=== PATIENT | male | born 1940 | race Caucasian/White ===

== ENCOUNTER 2024-10-26 20:24 | Emergency (ER) | payer MEDICARE, SELFPAY ==
[2024-10-26 20:24] VITALS: BP 163/77; PULSE 88; RESP 18; TEMP 36.8; O2SAT 97
[2024-10-26 20:47] VITALS: BMI 33.7
--- NOTE | 2024-10-26 20:52 | ED.VIS.FALL ---
HPI HPI - Fall History of Present Illness Chief Complaint: Fall [facility] Medical History (Updated 10/26/24 @ 20:49 by Zuri Florez) TIA (transient ischemic attack) Gout Hypertension Allergy/AdvReac Type Severity Reaction Status Date / Time No Known Allergies Allergy Verified 10/26/24 20:27 Social History Smoking Status: Former smoker EXAM Physical Exam Const Vital Signs: 10/26/24 20:24 10/26/24 20:49 10/26/24 21:15 Temperature 98.2 F Temperature Source Oral Pulse Rate 88 Respiratory Rate 18 Respiratory Effort Normal Non-Labored Respiratory Depth Normal Respiratory Pattern Normal Blood Pressure 163/77 H 149/73 H Blood Pressure Mean 105 94 Pulse Ox 97 98 Oxygen Delivery Method Room Air Room Air 10/26/24 22:00 Temperature Temperature Source Pulse Rate Respiratory Rate Respiratory Effort Respiratory Depth Respiratory Pattern Blood Pressure 120/77 Blood Pressure Mean 88 Pulse Ox 97 Oxygen Delivery Method MDM MDM MDM Narrative Medical decision making narrative: HISTORY OF PRESENT ILLNESS: Chief complaint: Fall 84-year-old male presents with fall in bathroom. Notes pain in his left flank. Family concerned he may have injured his left kidney. He is history of a traumatic kidney injury. Then with the patient's on Coumadin. Denies urinary complaints. No frequency urgency or dysuria. REVIEW OF SYSTEMS: Pertinent positives: Left flank pain Pertinent negatives: Urinary complaint PHYSICAL EXAM: Nursing triage notes reviewed, Vital signs reviewed Constitutional: please see mdm HENT: MMM Eyes: Pupils equal round and reactive to light, Extraocular muscles intact Neck: No stridor, no JVD, full neck ROM Lungs: Clear to auscultation, No wheezing or rales. No increased work of breathing, no conversational dyspnea, no accessory muscle use, no nasal flaring. No respiratory distress noted Heart: Regular rate and rhythm, No murmurs, No rubs and No gallops, 2+ distal pulses (radial, femoral, posterior tibial) in all extremities Abdomen: Soft, there is no tenderness, rigidity, rebound or guarding, no obvious peritoneal signs, no palpable pulsatile abdominal masses, no auscultated abdominal bruit : No CVAT Extremities: No edema Neuro: No new focal neurological deficits, cranial nerves II through XII intact, 5/5 strength in all present extremities. Intact sensation to light touch in all present extremities, 2+ reflexes bilateral patella tendons. Skin: No rash or lesions noted MEDICAL DECISION MAKING: Chief Complaint: please see HPI External records reviewed: Reviewed prior imaging studies Factors affecting care: Chronic anticoagulation Social determinants of health: none History obtained from others: family Consults: none [facility] Narrative: The patient was initially hemodynamically stable, afebrile and nontoxic-appearing. Exam without obvious outward trauma I considered the following differential diagnosis: Left leg contusion, renal laceration I obtained labs and images to further determine if the patient was suffering from a life-threatening etiology. Offered pain medicine the patient stated he felt fine he did not need pain medicine at this time ALL IMAGES (IF OBTAINED) HAVE BEEN PERSONALLY REVIEWED AND INTERPRETED BY MYSELF. CT scan abdomen pelvis shows no evidence of RP bleed or renal laceration. Noted prior injury. Also noted a kidney stone however patient clinically does not present like a kidney stone. It is small will pass on its own if it is truly stone. Radiologist also mention perinephric stranding and concern for cystitis however patient has no white blood cell count elevation, he has no fever. No flank pain or signs of infection prior to falling. This is purely traumatic mechanism. Suspect these imaging findings are artifacts. Low suspicion for associated UTI as patient had no urinary complaints. Is a traumatic injury INR supratherapeutic BMP without significant electrolyte abnormalities, noted CKD LFTs show no evidence of hepatobiliary pathology. Patient is appropriate discharge home as he did not have any evidence of Significant traumatic injury of the abdomen pelvis The patient and/or family, caregivers express understanding. The patient and/or family, caregivers agrees with the plan. Shared decision making: I will have a discussion with the patient and or visitors regarding risk/benefits of further testing or admission. They will be made aware of of the risk/benefits inherent in this decision they will be given the opportunity to voice understanding. Total critical care time today provided was at least 0 minutes. This excludes separately billable procedures. Critical care time (if documented) is secondary to the patient having high probability of clinically significant/life threatening deterioration in the patient's condition which required my urgent intervention. Impression: 1. Left flank pain 2. Fall 3. History of chronic anticoagulation 4. Nephrolithiasis Dispo: Discharge home This note was generated with [employer] dictation software. It may contain incorrect words, spelling, and punctuation that were not noted in review of the chart prior to signing. Lab Data Labs: Laboratory Results - last 24 hr 07/02/25 21:37 WBC 8.9 RBC 4.86 Hgb 15.4 Hct 46.0 MCV 94.7 H MCH 31.7 MCHC 33.5 RDW Std Deviation 51.4 H RDW Coeff of Valdo 14.7 H Plt Count 114 L MPV 9.8 Immature Gran % (Auto) 0.500 Neut % (Auto) 74.2 H Lymph % (Auto) 14.4 L [place] % (Auto) 7.7 Eos % (Auto) 2.4 Baso % (Auto) 0.8 Absolute Neuts (auto) 6.6 Absolute Lymphs (auto) 1.28 Nucleated RBC % 0 PT 36.0 H INR 3.5 Sodium 139 Potassium 4.3 Chloride 107 Carbon Dioxide 24.0 Anion Gap 9 BUN 21 H Creatinine 1.57 H Estim Creat Clear Calc 44.33 L Est GFR (MDRD) Non-Af 44 L BUN/Creatinine Ratio 13.6 Glucose 101 H Calcium 9.4 Total Bilirubin 0.66 Direct Bilirubin 0.33 H AST 32 ALT 17 Alkaline Phosphatase 84 Total Protein 6.5 Albumin 3.6 Globulin 3.0 Radiography Diagnostic Testing: Clinical Impression(s) from Imaging Studies Abdomen/Pelvis CT 10/26/24 21:50 IMPRESSION: 4 x 8 mm distal left ureteral stone without hydronephrosis. Possible recent left renal focal infarct. Cystitis and/or bladder wall hypertrophy. Advise correlation. Reading Location: [place] [address] Discharge Plan Triage Chief Complaint: Fall ED Provider: Julio Richardson Dx/Rx/DC Orders Primary Care Provider: eLisa Pringle,Out of Referrals: Leisa Pringle,Out of [Primary Care Provider] - Print Language: Nepali
[2024-10-26 21:15] VITALS: BP 149/73; O2SAT 98
[2024-10-26 21:47] LABS: Hematocrit 46.0 % (40-54); Hemoglobin 15.4 g/dL (13.0-16.5); Immature Granulocytes Count 0.040 X10^3/uL (0.0-0.0); Mean Corp Hgb Conc 33.5 g/dL (32-36); Mean Corpuscular Volume 94.7 fL (80-94); Mean Platelet Vol. 9.8 fl (6.2-12.0); NRBC Flagged by Analyzer 0 % (0-5); Platelet Count 114 K/mm3 (150-450); RBC Distribution Width CV 14.7 % (11.6-14.6); RBC Distribution Width SD 51.4 fl (35.1-43.9); Red Blood Count 4.86 M/mm3 (4.6-6.2); White Blood Count 8.9 K/mm3 (4.4-11.0)
--- NOTE | 2024-10-26 21:50 | CT_ITS ---
PROCEDURE: ABDOMEN/PELVIS W IV CONT ONLY 10/26/2024 REASON FOR EXAM: LEFT FLANK PAIN R/O RENAL PATHOLOGY, RP BLEED TECHNIQUE: ABDOMEN/PELVIS W IV CONT ONLY Coronal and Sagittal reconstruction series were provided. CONTRAST: Isovue 300 VOLUME: 98 mL One or more dose reduction techniques were used (e.g., Automated exposure control, adjustment of the mA and/or kV according to patient size, use of iterative reconstruction technique. RADIATION DOSE SUMMARY: CTDlvol: 42 mGy DLP: 1298 mGycm COMPARISON: No FINDINGS: Clear lung bases. Normal heart size. Cholelithiasis. Possible gallbladder, pancreas, spleen, adrenal glands. On the left, there is focal low-density possibly recent infarct. There is perinephric fluid and stranding. No hydronephrosis, but there is a 4 x 8 mm distal ureteral stone. There is bladder wall thickening, hypertrophy and/or cystitis. Slightly enlarged prostate. No retroperitoneal mass or adenopathy. No free air. Nonobstructed bowel. Normal appendix. Diverticulosis. No acute large bowel findings. Lumbar spine degeneration. Small umbilical fat hernia. CT/Abdomen/Pelvis W IV Cont ONLY IMPRESSION: 4 x 8 mm distal left ureteral stone without hydronephrosis. Possible recent left renal focal infarct. Cystitis and/or bladder wall hypertrophy. Advise correlation. Reading Location: [place] [address]
--- NOTE | 2024-10-26 21:50 | CT_ITS ---
PROCEDURE: ABDOMEN/PELVIS W IV CONT ONLY 10/26/2024 REASON FOR EXAM: LEFT FLANK PAIN R/O RENAL PATHOLOGY, RP BLEED TECHNIQUE: ABDOMEN/PELVIS W IV CONT ONLY Coronal and Sagittal reconstruction series were provided. CONTRAST: Isovue 300 VOLUME: 98 mL One or more dose reduction techniques were used (e.g., Automated exposure control, adjustment of the mA and/or kV according to patient size, use of iterative reconstruction technique. RADIATION DOSE SUMMARY: CTDlvol: 42 mGy DLP: 1298 mGycm COMPARISON: No FINDINGS: Clear lung bases. Normal heart size. Cholelithiasis. Possible gallbladder, pancreas, spleen, adrenal glands. On the left, there is focal low-density possibly recent infarct. There is perinephric fluid and stranding. No hydronephrosis, but there is a 4 x 8 mm distal ureteral stone. There is bladder wall thickening, hypertrophy and/or cystitis. Slightly enlarged prostate. No retroperitoneal mass or adenopathy. No free air. Nonobstructed bowel. Normal appendix. Diverticulosis. No acute large bowel findings. Lumbar spine degeneration. Small umbilical fat hernia. CT/Abdomen/Pelvis W IV Cont ONLY IMPRESSION: 4 x 8 mm distal left ureteral stone without hydronephrosis. Possible recent left renal focal infarct. Cystitis and/or bladder wall hypertrophy. Advise correlation. Reading Location: [place] [address]
[2024-10-26 21:56] LABS: Prothrombin Time (Protime)PT. 36.0 SECONDS (11.7-14.9)
[2024-10-26 22:00] VITALS: BP 120/77; O2SAT 97
[2024-10-26 22:03] LABS: AST(SGOT) 32 U/L (<=37); Alanine Aminotransfer ALT/SGPT 17 U/L (<=46); Albumin, Serum 3.6 g/dL (3.4-4.8); Alkaline Phosphatase 84 U/L (40-129); Anion Gap 9 (5-15); BUN 21 mg/dL (4-19); BUN/Creat Ratio 13.6 RATIO (10-20); Bilirubin, Direct 0.33 mg/dL (0.00-0.30); Calcium,Total 9.4 mg/dL (7.6-11.0); Carbon Dioxide 24.0 mmol/L (21.0-32.0); Chloride 107 mmol/L (98-108); Estimated Creatinine Clearance 44.33 ml/min (50-250); Globulin 3.0 g/dL (2.2-4.2); Glucose 101 mg/dL (70-99); Potassium 4.3 mmol/L (3.3-5.1)
[2024-10-26 22:57] VITALS: BP 145/60; PULSE 75; RESP 18; TEMP 37.2; O2SAT 96
== END 2024-10-26 22:58 | disposition home or self-care (01) ==
PROVIDERS: Emergency Provider Emergency Medicine; Referring Provider Emergency Medicine; Visit Provider Emergency Medicine
DX: R10.9 Unspecified abdominal pain (principal); W19.XXXA Unspecified fall, initial encounter; N18.9 Chronic kidney disease, unspecified; N20.0 Calculus of kidney; Z86.73 Personal history of transient ischemic attack (TIA), and cerebral infarction without residual deficits; Z79.01 Long term (current) use of anticoagulants; Z87.891 Personal history of nicotine dependence
CPT/HCPCS: 74177; 80048; 80076; 85025; 85610; 99282; Q9967; A4216

== ENCOUNTER 2025-03-07 06:37 | Emergency (ER) | payer MEDICARE, SELFPAY ==
[2025-03-07] VITALS (7 sets, daily range): BP systolic 125–146; BP diastolic 64–71; PULSE 53–65; RESP 13–23; TEMP 36.6; O2SAT 93–97; BMI 34.3
[2025-03-07 07:14] LABS: Mucous, Urine 0 SEEN /hpf (<or=2+); Red Blood Cells-Urine 0 SEEN /hpf (0-5)
[2025-03-07 07:18] LABS: Color, Urine Yellow (Yellow); Glucose, Dipstick Normal (Normal); Ketone-Dipstick Negative (Negative); Leukocyte Esterase-Dipstick 500 /ul (Negative); Nitrite-Dipstick Negative (Negative); Occult Blood-Urine 25 /ul (Negative); Protein-Dipstick 30 mg/dl (Negative); Specific Gravity, Urine 1.015 (1.002-1.030); Urine Bilirubin Dipstick Negative (Negative)
[2025-03-07 07:26] LABS: Squamous Epithelial Cells - UA 0-5 SEEN /hpf (0-5)
[2025-03-07 07:29] LABS: Hematocrit 47.3 % (40-54); Hemoglobin 15.7 g/dL (13.0-16.5); Immature Granulocytes Count 0.050 X10^3/uL (0.0-0.0); Mean Corp Hgb Conc 33.2 g/dL (32-36); Mean Corpuscular Volume 93.8 fL (80-94); Mean Platelet Vol. 9.9 fl (6.2-12.0); NRBC Flagged by Analyzer 0 % (0-5); Platelet Count 150 K/mm3 (150-450); RBC Distribution Width CV 14.7 % (11.6-14.6); RBC Distribution Width SD 50.5 fl (35.1-43.9); Red Blood Count 5.04 M/mm3 (4.6-6.2); White Blood Count 8.4 K/mm3 (4.4-11.0)
--- NOTE | 2025-03-07 07:31 | EDS_ITS ---
HPI History of Present Illness Chief Complaint: Overdose Informant: patient, spouse/S.O. and family Narrative Narrative: Patient is an 85-year-old male with history of dementia who lives with his and son. He also has a history of of hypertension and hyperlipidemia as well as previous TIA for which he is on warfarin for. According to the the patient does not sleep well because of his dementia and was up earlier this morning while she was sleeping. When she awoke he informed her that he took his medication from Thursday and Thursday all at once this morning. reports that his pills are placed in to a daily medicine container and when she looked at the container all the pills are still present. The patient states that he replaced the pills after taking them. He cannot tell me why he reportedly took the medication. No one witnessed him take the medication. He states he feels normal at this time. He also reports that he took the medication around 4:30 in the morning. As the is unsure if he truly took his medication or not and was concerned about potential overdose he was brought in for evaluation. does report he is at his baseline mental status at this time [facility] Medical History History of urinary self-catheterization TIA (transient ischemic attack) Gout Hypertension Home Medications ?Medication ?Instructions ?Recorded ?Last Taken ?Type atorvastatin 80 mg tablet 80 mg PO QHS 10/26/24 Unknow n History fenofibrate micronized 67 mg 67 mg PO DAILY 10/26/24 U nknown History capsule metoprolol tartrate 25 mg tablet 25 mg PO BID 10/26/24 Unknown History probenecid 500 mg tablet 500 mg PO BID 10/26/24 Unkno wn History warfarin 2 mg tablet 1 mg PO DAILY 10/26/24 Unkno wn History cholecalciferol (vitamin D3) 25 1,000 unit PO DAILY Unknown History mcg (1,000 unit) capsule (Vitamin D3) cyanocobalamin (vitamin B-12) 1,000 mcg PO QDAY Unknown History 1,000 mcg capsule folic acid 0.8 mg capsule 0.8 mg PO DAILY 03/07/25 Unk nown History Allergy/AdvReac Type Severity Reaction Status Date / Time No Known Allergies Allergy Verified 03/07/25 06:38 Social History Smoking Status: Former smoker ROS ROS ED Constitutional Constitutional ED: Denies chills or fever(s) Eyes Eyes: Denies change in vision ENT ENT ED: Denies sore throat Cardiovascular Cardiovascular: Denies chest pain or palpitations Respiratory/Chest Respiratory/Chest: Denies cough or dyspnea Gastrointestinal Gastrointestinal: Denies abdominal pain, diarrhea, nausea or vomiting Musculoskeletal Musculoskeletal: Denies back pain or myalgias Integumentary Denies rash Neurologic Neurologic: Denies headache(s) or weakness Hematologic/Lymphatic Hematologic/Lymphatic: Reports easy bleeding and easy bruising EXAM Physical Exam Const Vital Signs: 03/07/25 06:39 03/07/25 06:42 Temperature 97.9 F Temperature Source Oral Pulse Rate 65 Respiratory Rate 18 Respiratory Effort Normal Non-Labored Respiratory Pattern Normal Blood Pressure 139/71 H Blood Pressure Mean 93 Pulse Ox 97 Oxygen Delivery Method Room Air Positive well nourished, well developed and obese General Appearance ED: well developed; Negative for pallor Nutritional Appearance: obese HEENT HEENT Narrative: Normocephalic atraumatic No tongue or lip swelling no oral lesions no airway edema or compromise No signs of infection noted in the posterior pharynx Eyes PERRL and EOMs intact bilaterally General Eye ED: Negative for scleral icterus Neck supple Neck Narrative: No nuchal rigidity or meningeal sign Resp normal respiratory effort and clear to auscultation bilaterally Cardio regular rate and regular rhythm Rate: other Other Details: Heart is regular rate and rhythm Radial and carotid pulses are equal and symmetric GI normal to inspection, nondistended, normoactive bowel sounds, non-tender, non- distended and no masses GI Narrative: No voluntary guarding or rigidity or pulsatile mass No organomegaly noted No peritoneal signs Auscultation: normoactive bowel sounds Palpation: soft Extremity normal to inspection Neuro CN's II-XII intact bilaterally and no sensory deficits noted Neuro Narrative: Patient is at his baseline mental status without focal neurologic deficit Sensorium / Orientation: alert Motor Exam: strength 5/5 throughout Psych mental status grossly normal Skin no rashes or lesions noted and no wounds Skin Narrative: No excessive bruising noted General Skin Exam: Negative for jaundice or pallor MDM MDM MDM Narrative Medical decision making narrative: Patient arrived to the ER with stable vitals. He reported taking approximately 6 pills of each of his medications all at once. However no one witnessed him do this and with his history of dementia it is uncertain if he truly did take the medication or not especially as the meds are still in his daily pill container and he does not typically put the medications in there and reported that he did so. Also he took the medication reported around 4:30 in the morning. Of the medications he has listed the only ones I am concerned about is metoprolol tartrate and warfarin as this could cause a significant drop in his blood pressure and heart rate or cause increased bleeding. As he took the medication roughly 3 hours prior to arrival the metoprolol should be active within his system causing significant hypotension and bradycardia. Patient does not have these findings on physical exam and therefore I have clinical suspicion that he did not take the medication. In order to ensure that he does not have a UTI causing delirium or that there is significant derangement to his labs from potential overdose a basic workup was obtained. Urine showed white blood cells within the urine sample but no signs of bacteria and is nitrite negative going against acute UTI. Remainder of his labs revealed no findings of acute kidney injury or thyroid dysfunction or hepatic encephalopathy. He was watched in the ER for multiple hours and his vitals remained stable. This further enforces that he truly did not take those medication. Therefore as overall workup is negative and vitals remained stable I do not feel he warrants further observation or admission and is otherwise safe for discharge History & Record Review Discussion w/independent historian: Patient, Family and Significant other Lab Data Attestation: I reviewed the patient's lab results. Labs: Laboratory Results - last 24 hr 03/07/25 03/07/25 03/07/25 06:55 07:05 07:15 WBC 8.4 RBC 5.04 Hgb 15.7 Hct 47.3 MCV 93.8 MCH 31.2 MCHC 33.2 RDW Std Deviation 50.5 H RDW Coeff of Valdo 14.7 H Plt Count 150 MPV 9.9 Immature Gran % (Auto) 0.600 Neut % (Auto) 53.2 Lymph % (Auto) 27.2 [place] % (Auto) 13.4 H Eos % (Auto) 4.3 Baso % (Auto) 1.3 H Absolute Neuts (auto) 4.5 Absolute Lymphs (auto) 2.29 Nucleated RBC % 0 Sodium 139 Potassium 3.8 Chloride 104 Carbon Dioxide 23.7 Anion Gap 12 BUN 22 H Creatinine 1.37 H Estim Creat Clear Calc 50.41 Est GFR (MDRD) Non-Af 51 L BUN/Creatinine Ratio 16.1 Glucose 92 Calcium 9.5 Total Bilirubin 0.70 Direct Bilirubin 0.39 H AST 24 ALT 14 Alkaline Phosphatase 85 Ammonia 27.7 Total Creatine Kinase 70 Total Protein 6.7 Albumin 3.8 Globulin 2.9 TSH 3.440 Urine Color Yellow Urine Clarity Clear Urine pH 6.0 Ur Specific [place] 1.015 Urine Protein 30 H Urine Glucose (UA) Normal Urine Ketones Negative Urine Occult Blood 25 H Urine Nitrite Negative Urine Bilirubin Negative Urine Urobilinogen Normal Ur Leukocyte Esterase 500 H Urine RBC 0 SEEN Urine WBC >100 SEEN Ur Squamous Epith Cells 0-5 SEEN Urine Bacteria 0 SEEN Urine Mucus 0 SEEN Discharge Plan Triage Chief Complaint: Overdose ED Provider: Dio Edward Dx/Rx/DC Orders Clinical Impression: Hypertension, Hyperlipidemia, Current use of superintendent container terminal anticoagulation Instructions: What to Know When Taking?Warfarin, ED Hypertension, Established, ED High Cholesterol Prescriptions: No Action atorvastatin 80 mg tablet 80 mg PO QHS fenofibrate micronized 67 mg capsule 67 mg PO DAILY warfarin 2 mg tablet 1 mg PO DAILY probenecid 500 mg tablet 500 mg PO BID metoprolol tartrate 25 mg tablet 25 mg PO BID folic acid 0.8 mg capsule 0.8 mg PO DAILY cyanocobalamin (vitamin B-12) 1,000 mcg capsule 1,000 mcg PO QDAY cholecalciferol (vitamin D3) [Vitamin D3] 25 mcg (1,000 unit) capsule 1,000 unit PO DAILY Primary Care Provider: Janet Plunkett Referrals: [facility] Doctor,Out of [Non-Staff, Medical] Activity Restrictions/Additional Instructions: Your workup today revealed no clinically significant findings. The urine sample did showed white blood cells but no bacteria and therefore it will be sent for culture to further assess for potential infection. If no one notifies you it means the culture did not show signs of infection. Based on your persistently stable vitals this would go against the ingestion of multiple medications that were reported. Therefore please continue your medications starting tomorrow March 08 as directed by your doctor and follow-up with them for repeat evaluation. Return to the ER should you have any further concerns Print Language: Honduran Disposition Disposition: Home, Self Care
[2025-03-07 07:41] LABS: CPK Total, Creatine Kinase 70 U/L (24-195)
[2025-03-07 07:54] LABS: AST(SGOT) 24 U/L (<=37); Alanine Aminotransfer ALT/SGPT 14 U/L (<=46); Albumin, Serum 3.8 g/dL (3.4-4.8); Alkaline Phosphatase 85 U/L (40-129); Anion Gap 12 (5-15); BUN 22 mg/dL (4-19); BUN/Creat Ratio 16.1 RATIO (10-20); Bilirubin, Direct 0.39 mg/dL (0.00-0.30); Calcium,Total 9.5 mg/dL (7.6-11.0); Carbon Dioxide 23.7 mmol/L (21.0-32.0); Chloride 104 mmol/L (98-108); Estimated Creatinine Clearance 50.41 ml/min (50-250); Globulin 2.9 g/dL (2.2-4.2); Glucose 92 mg/dL (70-99); Potassium 3.8 mmol/L (3.3-5.1)
[2025-03-07 07:57] LABS: Prothrombin Time (Protime)PT. 25.3 SECONDS (11.7-14.9)
[2025-03-07 07:57] LABS: Ammonia 27.7 umol/L (16-60)
== END 2025-03-07 09:46 | disposition home or self-care (01) ==
LOC: ED 07:50
PROVIDERS: Emergency Provider Emergency Medicine; PCP Student in an Organized Health Care Education/Training Program; Visit Provider Emergency Medicine
DX: Z71.1 Person with feared health complaint in whom no diagnosis is made (principal); F03.90 Unspecified dementia, unspecified severity, without behavioral disturbance, psychotic disturbance, mood disturbance, and anxiety; I10 Essential (primary) hypertension; Z87.891 Personal history of nicotine dependence; Z79.01 Long term (current) use of anticoagulants; E78.5 Hyperlipidemia, unspecified; E66.9 Obesity, unspecified; Z79.899 Other long term (current) drug therapy
CPT/HCPCS: 80048; 80076; 81001; 82140; 82550; 84443; 85025; 85610; 87077; 87086; 87088; 87186; 99284; A4216